=== PATIENT | male | born 1960 ===

== ENCOUNTER 2017-05-24 01:44 | Inpatient (IN) | payer OTHER ==
[2017-05-24] MEDS ORDERED: LORazepam 1 MG TAB PO PRN (02:56)
[2017-05-24] MEDS ORDERED: MAGNESIUM HYDROXIDE 2,400 MG/10 ML CUP PO PRN (02:56)
[2017-05-24] MEDS ORDERED: ZIPRASIDONE 20 MG VIAL IM PRN (02:56)
[2017-05-24] MEDS ORDERED: MAG HYDROX/AL HYDROX/SIMETH 30 ML CUP PO PRN (02:56)
--- NOTE | 2017-05-24 09:07 | P.HP ---
Psychiatric H&P - . H&P Date: 05/24/17 History & Physical: Allergies Allergy/AdvReac Type Severity Reaction Status Date / Time No Known Allergies Allergy Verified 05/24/17 02:55 Vital Signs Temp 98.3 F 05/24/17 02:16 Pulse 85 05/24/17 02:16 Resp 14 05/24/17 02:16 BP 113/79 05/24/17 02:16 Pulse Ox 95 05/24/17 02:16 Intake & Output 05/23/17 05/24/17 05/24/17 18:59 06:59 18:59 Weight 81.5 kg 05/24/17 09:07 Patient found in bed sleeping, difficult to wake him and when he woke he refused to sit up and talk, keeping his eyes closed. Will attempt later in day. Patient refused. 05/24/17 16:02
--- NOTE | 2017-05-24 12:42 | P.PN ---
Progress Note - Text Patient refused to be seen by medicine.
[2017-05-24] MEDS: ACETAMINOPHEN TAB 325 MG TAB PO PRN (17:05)
[2017-05-25] MEDS: ACETAMINOPHEN TAB 325 MG TAB PO PRN ×2 (06:12→21:16)
[2017-05-25 09:40] LABS: Basophils # (A) 0.1 k/uL (0-0.2); Basophils % (A) 1 %; CH 34.3; CHCM 34.4; Eosinophils # (A) 0.1 k/uL (0-0.7); Eosinophils % (A) 1 %; HCT 47.4 % (39.0-53.0); HDW 2.19; HGB 16.4 gm/dL (13.0-17.5); Luc # (Auto) 0.25; Luc % (Auto) 3; Lymphocytes # (A) 2.1 k/uL (1.0-4.8); Lymphocytes % (A) 22 %; MCH 34.5 pg (25.0-35.0); MCHC 34.5 g/dL (31.0-37.0); MCV 99.8 fL (80.0-100.0); Mean Platelet Volume 7.4; Monocytes # (A) 0.5 k/uL (0-1.0); Monocytes % (A) 6 %; Neutrophils # (A) 6.5 k/uL (1.3-7.7); Neutrophils % (A) 69 %; RBC 4.75 m/uL (4.30-5.90); RDW 13.4 % (11.5-15.5); WBC 9.4 k/uL (3.8-10.6); WBC (Perox) 8.86
[2017-05-25 10:11] LABS: ALT 32 U/L (21-72); AST 26 U/L (17-59); Alkaline Phosphatase 52 U/L (38-126); Anion Gap 11 mmol/L; Blood Urea Nitrogen 19 mg/dL (9-20); Calcium 9.6 mg/dL (8.4-10.2); Carbon Dioxide 26 mmol/L (22-30); Chloride 99 mmol/L (98-107); Glucose 129 mg/dL (74-99); Non-African American GFR(MDRD) >60 (>60 ml/min/1.73 sqM); Potassium 3.9 mmol/L (3.5-5.1); Sodium 136 mmol/L (137-145); Total Bilirubin 0.9 mg/dL (0.2-1.3); Total Protein 7.4 g/dL (6.3-8.2)
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
[2017-05-26] MEDS: ACETAMINOPHEN TAB 325 MG TAB PO PRN ×2 (11:38→23:00)
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
[2017-05-26] MEDS: ARIPiprazole 5 MG TAB PO SCH (13:38)
[2017-05-27] MEDS: ARIPiprazole 5 MG TAB PO SCH (08:32)
[2017-05-27] MEDS: ACETAMINOPHEN TAB 325 MG TAB PO PRN (11:01)
[2017-05-27] MEDS ORDERED: ARIPiprazole 5 MG TAB PO STA (12:48)
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
[2017-05-27] MEDS ORDERED: traZODone HCL 100 MG TAB PO SCH (21:00)
[2017-05-28] MEDS: ACETAMINOPHEN TAB 325 MG TAB PO PRN ×3 (08:23→22:49)
[2017-05-28] MEDS ORDERED: ARIPiprazole 10 MG TAB PO SCH (09:00)
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
[2017-05-28] MEDS: traZODone HCL 100 MG TAB PO PRN (22:49)
[2017-05-29] MEDS: ARIPiprazole 15 MG TAB PO SCH (08:11)
[2017-05-29] MEDS: ACETAMINOPHEN TAB 325 MG TAB PO PRN ×3 (09:12→22:23)
--- NOTE | 2017-05-29 19:09 | P.PN ---
Progress Note - Text Date of service: 05/29/2017 Chief complaint: "I feel the same " Subjective: The patient has been seen today as follow-up, chart reviewed, case discussed with the treatment team. The patient was very poor historian, prompted to answer questions about his mood, unable to express his feeling. He endorsed feeling "the same" and when asked to explore he added "depressed". Patient was very evasive and superficial. He gave vague answers about feeling suicidal and he didn't answer for questions about hearing voices or feeling paranoid. "I feel like get lost and confused sometimes." Patient admitted for feeling safe in the hospital and he would talk to staff if he has any thoughts about hurting himself. He denies any current thoughts to hurt self or others. Patient reports had poor sleep last night even nurses report that he slept all night. Patient reports his sleep is relatively better last night but he still turn and tossing for most of the night. He reports has poor appetite but better than the time he came in. He denies hallucinations but not able to admit or deny paranoid thoughts. He reports has headache which get helped with Tylenol. Review of other systems: Patient denies any physical symptoms besides what has been mentioned above. No breathing problems, no chest pain reported today. Objective: Vitals has been reviewed. Mental status examination; Appearance: The patient appears older than stated age, disheveled, no specific features. Gait/posture: Slow gait, slow arm swinging: No abnormal movements. Attitude and behavior: Not engaged, not cooperative, poor eye contact. Motor activity: Decreased psychomotor activity Speech: Monotone, prompted Mood: Depressed Affect: Constricted Thought form: Preoccupied with hopelessness but goal-directed, linear, and coherent. Thought content: Non-delusional, vague paranoid ideation, vague suicidal thoughts, denies homicidal thoughts, denies intentions or plans. Perception: Denies any auditory or visual hallucinations Attention: No impairment. Orientation: Patient patient was fully oriented to time place person and situation. Insight: Patient has limited insight about his psychiatric disorder. Judgment: Patient has limited judgment about his psychiatric treatment. Assessment: Depression, unspecified, with psychosis Cannabis use disorder, mild to moderate Plan: Continue with inpatient psychiatric hospitalization for monitoring and continue treatment. Continue group therapy and other unit activities. Continue psychiatric medications: Abilify 15mg daily and will start Effexor XR 37.5mg daily for depression symptoms. Continue Trazodone 100mg HS PRN For insomnia and will add Benadryl 25mg PO HS PRN for insomnia Continue monitoring and follow-up
[2017-05-29] MEDS ORDERED: diphenhydrAMINE 25 MG CAP PO PRN (19:10)
[2017-05-29] MEDS: traZODone HCL 100 MG TAB PO PRN (22:23)
[2017-05-30] MEDS: ACETAMINOPHEN TAB 325 MG TAB PO PRN ×3 (07:33→22:03)
[2017-05-30] MEDS ORDERED: VENLAFAXINE HCL 37.5 MG TAB PO SCH (09:00)
[2017-05-30] MEDS: ARIPiprazole 15 MG TAB PO SCH (09:15)
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
[2017-05-30] MEDS: THIAMINE 100 MG/ML 2 ML VIAL IM SCH (14:40)
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
[2017-05-30] MEDS: traZODone HCL 100 MG TAB PO PRN (22:03)
[2017-05-31] MEDS: ACETAMINOPHEN TAB 325 MG TAB PO PRN ×3 (08:01→22:12)
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
[2017-05-31] MEDS: ARIPiprazole 15 MG TAB PO SCH (09:19)
[2017-05-31] MEDS: THIAMINE 100 MG/ML 2 ML VIAL IM SCH (09:19)
[2017-05-31] MEDS: VENLAFAXINE HCL ER 75 MG CAP PO SCH (09:19)
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
[2017-05-31] MEDS: traZODone HCL 100 MG TAB PO PRN (22:12)
[2017-06-01 05:42] VITALS: BP 118/79; PULSE 91; RESP 18; TEMP 97.7
[2017-06-01] MEDS: ACETAMINOPHEN TAB 325 MG TAB PO PRN (07:55)
[2017-06-01] MEDS: VENLAFAXINE HCL ER 75 MG CAP PO SCH (07:56)
[2017-06-01] MEDS: ARIPiprazole 15 MG TAB PO SCH (07:56)
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
[2017-06-01] MEDS: THIAMINE 100 MG/ML 2 ML VIAL IM SCH (09:58)
[2017-06-02] MEDS ORDERED: VENLAFAXINE HCL ER 150 MG CAP PO SCH (09:00)
[2017-06-03] MEDS ORDERED: THIAMINE 100 MG TAB PO SCH (12:00)
== END 2017-06-01 09:56 | disposition home or self-care (01) | DRG 885 ==
LOC: 3MHU 01:57
PROVIDERS: ADMIT Psychiatry & Neurology Addiction Medicine; ATTEND Psychiatry & Neurology Addiction Medicine
DX: F32.3 Major depressive disorder, single episode, severe with psychotic features (principal); R45.851 Suicidal ideations; F12.90 Cannabis use, unspecified, uncomplicated; M54.81 Occipital neuralgia; G44.229 Chronic tension-type headache, not intractable; F94.0 Selective mutism; G47.00 Insomnia, unspecified; F10.10 Alcohol abuse, uncomplicated; Z87.891 Personal history of nicotine dependence; Z87.820 Personal history of traumatic brain injury; Z81.8 Family history of other mental and behavioral disorders; V19.9XXA Pedal cyclist (driver) (passenger) injured in unspecified traffic accident, initial encounter; Y93.55 Activity, bike riding
CPT/HCPCS: 70450; 80053; 84443; 85025